=== PATIENT | female | born 1950 | race Caucasian/White ===

== ENCOUNTER 2019-05-18 18:52 | Emergency (ER) | payer MEDICARE, OTHER ==
--- NOTE | 2019-05-18 19:58 | UC ---
Back Pain HPI - HPI Summary HPI Summary: TWISTED BACK AWKWARDLY THIS AFTERNOON WHILE STANDING UP FROM THE FLOOR. HAS RIGHT LOW BACK PAIN AND RIGHT LEG PAIN. DENIES NUMBNESS. NO TINGLING. NO SADDLE ANESTHESIA. PAIN WORSE WHEN STANDING. BLOOD PRESSURE FOUND TO BE 217/98 ON ARRIVAL TO THE URGENT CARE. PATIENT DOES HAVE A HISTORY OF HYPERTENSION BUT STATES IT IS NORMALLY IN THE SYSTOLIC 140S. SHE DOES NOT CHECK HER BLOOD PRESSURE AT HOME. SHE DENIES ANY HEADACHE, NAUSEA , CHEST PAIN, SHORTNESS OF BREATH. - History of Current Complaint Chief Complaint: UCBackPain Stated Complaint: RT SIDE BACK AND LEG PAIN Time Seen by Provider: 05/18/19 19:26 Hx Obtained From: Patient Onset/Duration: Sudden Onset, Lasting Hours, Still Present Timing: Constant Severity Initially: Moderate Severity Currently: Moderate Pain Intensity: 5 Pain Scale Used: 0-10 Numeric Back Pain: Is Discrete @ - RIGHT LOW BACK Character: Sharp Aggravating Factor(s): Movement Alleviating Factor(s): Rest Associated Signs And Symptoms: Positive: Weakness. Negative: Swelling, Numbness , Tingling, Bladder Incontinence, Bowel Incontinence - Allergies/Home Medications Allergies/Adverse Reactions: Allergies Allergy/AdvReac Type Severity Reaction Status Date / Time Sulfa (Sulfonamide Allergy Unknown Verified 05/18/19 19:13 Antibiotics) Reaction Details Home Medications: Home Medications Efinaconazole [Jublia] 10 % TOPICAL DAILY 02/10/19 [History Confirmed 05/18/19] Metoprolol Succinate XL TAB* [Toprol XL TAB*] 50 mg PO DAILY 02/10/19 [History Confirmed 05/18/19] metFORMIN* [Glucophage 500 MG TAB *] 500 mg PO BID 02/10/19 [History Confirmed 05/18/19] Cholecalciferol (Vitamin D3) [Vitamin D3] 2,000 unit PO DAILY 02/15/19 [History Confirmed 05/18/19] Cyclobenzaprine TAB* [Flexeril TAB*] 10 mg PO BID PRN #30 tab 05/18/19 [Rx] Hydrochlorothiazide TAB* [Hydrodiuril TAB*] 1 tab PO DAILY 05/18/19 [History Confirmed 05/18/19] Simvastatin (NF) [Zocor (NF)] 1 tab PO DAILY 05/18/19 [History Confirmed ] PMH/Surg Hx/FS Hx/Imm Hx Endocrine History: Diabetes Cardiovascular History: Hypertension - Surgical History Surgical History: None - Family History Known Family History: Positive: Cardiac Disease - Social History Alcohol Use: Rare Substance Use Type: None Smoking Status (MU): Never Smoked Tobacco Review of Systems All Other Systems Reviewed And Are Negative: Yes Constitutional: Positive: Negative Skin: Positive: Negative Respiratory: Positive: Negative Cardiovascular: Positive: Negative Gastrointestinal: Positive: Negative Genitourinary: Positive: Negative Musculoskeletal: Positive: Arthralgia, Decreased ROM, Myalgia Physical Exam Triage Information Reviewed: Yes Appearance: Well-Appearing, No Pain Distress, Well-Nourished Vital Signs: Initial Vital Signs Temp 97.3 F 05/18/19 19:16 Pulse 82 05/18/19 19:16 Resp 20 05/18/19 19:16 BP 217/98 05/18/19 19:16 Pulse Ox 96 05/18/19 19:16 Laboratory Tests 05/18/19 20:01 POC Urine Color Yellow POC Urine Clarity Clear POC Urine pH 6.5 POC Ur Specif [place] >= 1.030 POC Urine Protein Negative POC Ur Glucose (UA) Negative POC Urine Ketones Negative POC Urine Blood Trace-intact A POC Urine Nitrite Negative POC Urine Bilirubin Negative POC Urine Urobilinogen 0.2 POC U Leukocyte Esteras 2+ A Vital Signs Reviewed: Yes Eyes: Positive: Conjunctiva Clear ENT: Positive: Hearing grossly normal Neck: Positive: Supple Respiratory Exam: Normal Cardiovascular Exam: Normal Musculoskeletal: Positive: No Edema, ROM Limited @ - BACK, Other: - NEG STRAIGHT LEG RAISE. 4/5 STRENGTH RIGHT LEG, 5/5 LEFT LEG Neurological: Positive: Alert Psychological: Positive: Age Appropriate Behavior Skin: Negative: Rashes Diagnostics - Radiology L-SPINE XRAYS Radiology Interpretation Completed By: ED Physician Summary of Radiographic Findings: DEGENERATIVE CHANGES BUT NO ACUTE PATHOLOGY Back Pain Course/Dx - Course Course Of Treatment: GIVEN THE INCIDENTAL FINDING OF SIGNIFICANTLY ELEVATED BLOOD PRESSURE, URINE WAS TESTED. NO PROTEIN FOUND BUT PATIENT DID HAVE LEUKS AND TRACE BLOOD. SHE HAS NO URINARY SYMPTOMS THIS MAY BE DUE TO LACK OF FLUID HYDRATION AND CONTAMINATION. WILL NOT TREAT WITH AN ANTIBIOTIC PRESENTLY. SPECIMEN SENT FOR CULTURE AND WE WILL CALL THE PATIENT IF NEEDED. IF PT HAS NO SYMPTOMS TREATMENT MAY NOT BE INDICATED. ADVISED TO STAY WELL-HYDRATED AND HAVE HER URINE RECHECKED IN A COUPLE OF WEEKS TO ENSURE THE BLOOD HAS CLEARED. PATIENT ADVISED TO GO TO THE ER FOR FURTHER EVALUATION OF HER SIGNIFICANTLY ELEVATED BLOOD PRESSURE. PT OFFERED TRANSPORT TO THE ER BY AMBULANCE BUT DECLINES. ADVISED THAT BY NOT TRAVELING IN A MONITORED SETTING SHE COULD BE RISKING WORSENING OF HER CONDITION THAT COULD POSE A THREAT TO HER LIFE, HEALTH AND MEDICAL SAFETY. SHE VERBALIZES UNDERSTANDING AND CONTINUES TO DECLINE AMBULANCE TRANSFER. BACK PAIN LIKELY DUE TO ACUTE MUSCLE STRAIN SUSTAINED FROM AWKWARD POSITIONING EARLIER TODAY. DUE TO ELEVATED BLOOD PRESSURE PATIENT ADVISED NOT TO TAKE NSAIDS FOR DISCOMFORT. SHE WILL USE TYLENOL AND FLEXERIL. HEAT, REST, SLOW RANGE OF MOTION/STRETCHING EXERCISES. TO THE ER WITHOUT FAIL IF SYMPTOMS WORSEN. - Differential Dx/Diagnosis Provider Diagnosis: Acute lumbar myofascial strain, Asymptomatic hypertensive urgency Discharge ED - Sign-Out/Discharge Documenting (check all that apply): Patient Departure All imaging exams completed and their final reports reviewed: No - Discharge Plan Condition: Stable Disposition: TRANS [facility] OF CARE FAC Prescriptions: Cyclobenzaprine TAB* [Flexeril TAB*] 10 mg PO BID PRN #30 tab PRN Reason: Pain Patient Education Materials: Low Back Strain (ED), Hypertensive Crisis (ED) Referrals: Rolando Mattson MD [Primary Care Provider] - 2 Days Additional Instructions: FOR YOUR ELEVATED BLOOD PRESSURE (217/98, 180/100): GO DIRECTLY TO THE [facility] [facility] FROM HERE FOR FURTHER EVALUATION. YOU HAVE DECLINED TRANSFER TO THE ER BY AMBULANCE. BE ADVISED THAT BY NOT TRAVELING IN A MONITORED SETTING YOU COULD BE RISKING WORSENING OF YOUR CONDITION THAT COULD POSE A THREAT TO YOUR LIFE, HEALTH AND MEDICAL SAFETY. FOR YOUR BACK PAIN: BACK PAIN LIKELY DUE TO ACUTE MUSCLE STRAIN. XRAYS SHOW DEGENERATIVE CHANGES BUT NOTHING ACUTE ON MY INITIAL INTERPRETATION. WE WILL CALL YOU TOMORROW IF THE RADIOLOGY READ DIFFERS. AVOID NSAIDS SUCH MELOXICAM, ALEVE AND IBUPROFEN DUE TO YOUR ELEVATED BLOOD PRESSURE. TAKE TYLENOL NEEDED FOR DISCOMFORT. USE THE MUSCLE RELAXER AT NIGHT BEFORE BED. BE SURE TO GO THROUGH SLOW RANGE OF MOTION AND STRETCHING EXERCISES DAILY YOU ARE ABLE TO PREVENT STIFFENING UP AND MAKING THE DISCOMFORT WORSE. GO TO THE ED WITHOUT FAIL IF YOU DEVELOP WORSENING NUMBNESS/TINGLING IN YOUR LEGS, NUMBNESS IN THE GENITAL REGION, LOSS OF BOWEL/BLADDER CONTROL, INTOLERABLE PAIN OR ANY OTHER CONCERNING SYMPTOMS. I RECOMMEND YOU RECHECK YOUR URINE TEST WITH YOUR PCP IN A COUPLE OF WEEKS TO ENSURE THE BLOOD HAS CLEARED. STAY WELL HYDRATED. - Billing Disposition and Condition Condition: STABLE Disposition: Trans Higher Lvl of Care Fac
[2019-05-18 20:32] VITALS: BP 180/102
[2019-05-18] MEDS ORDERED: Cyclobenzaprine TAB* 10 MG PO ONE (20:39)
--- NOTE | 2019-05-21 10:07 | UC ---
- Progress Note Progress Note: CALLED PATIENT TO SEE HOW SHE IS DOING. LEFT MESSAGE TO CALL BACK. URINE CULTURE RETURNED POSITIVE FOR E. COLI 25-50,000 CFU/ML. NOT NECESSARILY INDICATIVE OF UTI. IF PATIENT CONTINUES TO BE ASYMPTOMATIC WOULD NOT TREAT. PATIENT ALSO HAS SIGNIFICANT ATHEROSCLEROTIC CHANGE IN HER LOWER AORTA. THIS WAS DISCUSSED WITH THE PATIENT DURING HER VISIT HERE. WOULD ADVISE PATIENT TO FOLLOW THIS UP WITH HER PCP TO EVALUATE FOR ANY ARTERIAL INSUFFICIENCY MORE DISTALLY. Course/Dx - Diagnoses Provider Diagnoses: Acute lumbar myofascial strain, Asymptomatic hypertensive urgency Discharge ED - Sign-Out/Discharge Documenting (check all that apply): Patient Departure All imaging exams completed and their final reports reviewed: Yes - Discharge Plan Condition: Stable Disposition: TRANS HIGHER LVL OF CARE FAC Prescriptions: Cyclobenzaprine TAB* [Flexeril TAB*] 10 mg PO BID PRN #30 tab PRN Reason: Pain Patient Education Materials: Low Back Strain (ED), Hypertensive Crisis (ED) Referrals: Rolando Mattson MD [Primary Care Provider] - 2 Days Additional Instructions: FOR YOUR ELEVATED BLOOD PRESSURE (217/98, 180/100): GO DIRECTLY TO THE [facility] [place] ER FROM HERE FOR FURTHER EVALUATION. YOU HAVE DECLINED TRANSFER TO THE ER BY AMBULANCE. BE ADVISED THAT BY NOT TRAVELING IN A MONITORED SETTING YOU COULD BE RISKING WORSENING OF YOUR CONDITION THAT COULD POSE A THREAT TO YOUR LIFE, HEALTH AND MEDICAL SAFETY. FOR YOUR BACK PAIN: BACK PAIN LIKELY DUE TO ACUTE MUSCLE STRAIN. XRAYS SHOW DEGENERATIVE CHANGES BUT NOTHING ACUTE ON MY INITIAL INTERPRETATION. WE WILL CALL YOU TOMORROW IF THE RADIOLOGY READ DIFFERS. AVOID NSAIDS SUCH MELOXICAM, ALEVE AND IBUPROFEN DUE TO YOUR ELEVATED BLOOD PRESSURE. TAKE TYLENOL NEEDED FOR DISCOMFORT. USE THE MUSCLE RELAXER AT NIGHT BEFORE BED. BE SURE TO GO THROUGH SLOW RANGE OF MOTION AND STRETCHING EXERCISES DAILY YOU ARE ABLE TO PREVENT STIFFENING UP AND MAKING THE DISCOMFORT WORSE. GO TO THE ED WITHOUT FAIL IF YOU DEVELOP WORSENING NUMBNESS/TINGLING IN YOUR LEGS, NUMBNESS IN THE GENITAL REGION, LOSS OF BOWEL/BLADDER CONTROL, INTOLERABLE PAIN OR ANY OTHER CONCERNING SYMPTOMS. I RECOMMEND YOU RECHECK YOUR URINE TEST WITH YOUR PCP IN A COUPLE OF WEEKS TO ENSURE THE BLOOD HAS CLEARED. STAY WELL HYDRATED. - Billing Disposition and Condition Condition: STABLE Disposition: Trans Higher Lvl of Care Fac
--- NOTE | 2019-05-21 10:38 | UC ---
- Progress Note Progress Note: PATIENT CALLED BACK. SHE STATES HER BLOOD PRESSURE IS BACK TO AROUND HER BASELINE OF SYSTOLIC 140S. WHEN QUESTIONED ABOUT HER BACK PAIN SHE STATES IT IS NOT MUCH BETTER. SHE ALSO REPORTS THAT LAST NIGHT SHE DEVELOPED RIGHT CALF PAIN AND A FEELING OF "THICKNESS "IN HER RIGHT LOWER LEG. WHEN ASKED IF HER RIGHT LEG LOOKS BIGGER THAN THE OTHER SHE ADMITS THAT IT DOES. PATIENT ADVISED TO GO DIRECTLY TO THE [facility] ER IMMEDIATELY FOR FURTHER EVALUATION. SHE MAY BENEFIT FROM BOTH VENOUS AND ARTERIAL EVALUATION GIVEN THE CALCIFICATION SEEN IN HER LOWER AORTA. I ALSO INFORMED HER OF HER EQUIVOCAL UTI CULTURE RESULTS. SHE CONTINUES TO BE ASYMPTOMATIC FROM A URINARY PERSPECTIVE. WOULD NOT TREAT WITH ANTIBIOTICS AT THIS TIME. DR. LONA BAEZ AT [facility] ER INFORMED. Course/Dx - Diagnoses Provider Diagnoses: Acute lumbar myofascial strain, Asymptomatic hypertensive urgency Discharge ED - Sign-Out/Discharge Documenting (check all that apply): Post-Discharge Follow Up All imaging exams completed and their final reports reviewed: Yes - Discharge Plan Condition: Stable [facility] Prescriptions: Cyclobenzaprine TAB* [Flexeril TAB*] 10 mg PO BID PRN #30 tab PRN Reason: Pain Patient Education Materials: Low Back Strain (ED), Hypertensive Crisis (ED) Referrals: Rolando Mattson MD [Primary Care Provider] - 2 Days Additional Instructions: FOR YOUR ELEVATED BLOOD PRESSURE (217/98, 180/100): GO DIRECTLY TO THE [facility] ER FROM HERE FOR FURTHER EVALUATION. YOU HAVE DECLINED TRANSFER TO THE ER BY AMBULANCE. BE ADVISED THAT BY NOT TRAVELING IN A MONITORED SETTING YOU COULD BE RISKING WORSENING OF YOUR CONDITION THAT COULD POSE A THREAT TO YOUR LIFE, HEALTH AND MEDICAL SAFETY. FOR YOUR BACK PAIN: BACK PAIN LIKELY DUE TO ACUTE MUSCLE STRAIN. XRAYS SHOW DEGENERATIVE CHANGES BUT NOTHING ACUTE ON MY INITIAL INTERPRETATION. WE WILL CALL YOU TOMORROW IF THE RADIOLOGY READ DIFFERS. AVOID NSAIDS SUCH MELOXICAM, ALEVE AND IBUPROFEN DUE TO YOUR ELEVATED BLOOD PRESSURE. TAKE TYLENOL NEEDED FOR DISCOMFORT. USE THE MUSCLE RELAXER AT NIGHT BEFORE BED. BE SURE TO GO THROUGH SLOW RANGE OF MOTION AND STRETCHING EXERCISES DAILY YOU ARE ABLE TO PREVENT STIFFENING UP AND MAKING THE DISCOMFORT WORSE. GO TO THE ED WITHOUT FAIL IF YOU DEVELOP WORSENING NUMBNESS/TINGLING IN YOUR LEGS, NUMBNESS IN THE GENITAL REGION, LOSS OF BOWEL/BLADDER CONTROL, INTOLERABLE PAIN OR ANY OTHER CONCERNING SYMPTOMS. I RECOMMEND YOU RECHECK YOUR URINE TEST WITH YOUR PCP IN A COUPLE OF WEEKS TO ENSURE THE BLOOD HAS CLEARED. STAY WELL HYDRATED. - Billing Disposition and Condition Condition: STABLE Disposition: Trans Higher Lvl of Care Fac
== END 2019-05-18 20:54 | disposition short-term general hospital (02) ==
LOC: UCEAST 18:52
DX: S39.012A Strain of muscle, fascia and tendon of lower back, initial encounter (principal); X50.1XXA Overexertion from prolonged static or awkward postures, initial encounter; Y93.89 Activity, other specified; Y92.9 Unspecified place or not applicable; I16.0 Hypertensive urgency; E11.9 Type 2 diabetes mellitus without complications; Z79.84 Long term (current) use of oral hypoglycemic drugs; Z79.899 Other long term (current) drug therapy; Z88.2 Allergy status to sulfonamides
CPT/HCPCS: 72110; 81003; 87077; 87086; 87186; 99212; A9270-GY; G0463

== ENCOUNTER 2019-05-18 21:14 | Emergency (ER) | payer MEDICARE, OTHER ==
--- NOTE | 2019-05-18 21:47 | ED ---
Hypertension - HPI Summary HPI Summary: 68-year-old female with significant past medical history of type 2 diabetes and hypertension presents to the emergency department today with a chief complaint of elevated blood pressure. Upon arrival in the emergency department patient's blood pressure is 203/99 mmHg. Patient was recently seen at urgent care for back pain and leg pain which was diagnosed as mechanical back strain. Patient was sent here from urgent care due to her high blood pressure. Patient had urinalysis done in the urgent care which showed no evidence of proteinuria. Patient states she has taken her antihypertensive medications today. Patient denies other symptoms such as headache, changes in vision, chest pain, abdominal pain, blood in her urine. Patient denies recent recreational drug use. Patient denies family history of polycystic kidney disease or aneurysm. - History of Current Complaint Chief Complaint: EDHypertension Stated Complaint: HIGH BLOOD PRESSURE Time Seen by Provider: 05/18/19 21:33 Hx Obtained From: Patient Timing: Constant Associated Signs & Symptoms: Negative Current Medications: Beta Radha, Diuretic - Risk Factors Cardiac Risk Factors: Hypertension, Smoking, Diabetes - Allergies/Home Medications Allergies/Adverse Reactions: Allergies Allergy/AdvReac Type Severity Reaction Status Date / Time Sulfa (Sulfonamide Allergy Unknown Verified 05/18/19 21:18 Antibiotics) Reaction Details Home Medications: Home Medications Efinaconazole [Jublia] 10 % TOPICAL DAILY 02/10/19 [History Confirmed 05/18/19] Metoprolol Succinate XL TAB* [Toprol XL TAB*] 50 mg PO DAILY 02/10/19 [History Confirmed 05/18/19] metFORMIN* [Glucophage 500 MG TAB *] 500 mg PO BID 02/10/19 [History Confirmed 05/18/19] Cholecalciferol (Vitamin D3) [Vitamin D3] 2,000 unit PO DAILY 02/15/19 [History Confirmed 05/18/19] Cyclobenzaprine TAB* [Flexeril TAB*] 10 mg PO BID PRN #30 tab 05/18/19 [Rx Confirmed 05/18/19] Fluoride (Sodium) [Prevident 5000 Dry Mouth] 1.1 % PO BID 05/18/19 [History Confirmed 05/18/19] Simvastatin TAB(NF) [Zocor(NF)] 20 mg PO DAILY 05/18/19 [History Confirmed 05/17] Spironolactone/HCTZ 25-25 MG* [Aldactazide 25-25*] 1 tab PO DAILY 05/18/19 [ History Confirmed 05/18/19] PMH/Surg Hx/FS Hx/Imm Hx Endocrine/Hematology History: Reports: Hx Diabetes Cardiovascular History: Reports: Hx Hypertension - Cancer History Hx Chemotherapy: No Hx Radiation Therapy: No Infectious Disease History: No Infectious Disease History: Denies: Traveled Outside the [place] in Last 30 Days - Family History Known Family History: Positive: Cardiac Disease, Non-Contributory - Social History Alcohol Use: Rare Substance Use Type: Reports: None Smoking Status (MU): Never Smoked Tobacco Review of Systems Constitutional: Negative Eyes: Negative ENT: Negative Cardiovascular: Negative Respiratory: Negative Gastrointestinal: Negative Genitourinary: Negative Positive: Arthralgia. Negative: Myalgia, Decreased ROM, Edema Skin: Negative Neurological/Mental Status: Negative Psychological: Normal All Other Systems Reviewed And Are Negative: Yes Physical Exam - Summary Physical Exam Summary: Patient is in no acute distress. Patient has no tenderness to palpation of the midline. Patient has pain with palpation of the right paraspinal muscles of the lumbar spine. Back pain is reproducible and appears consistent with lumbar muscle strain. Patient visual yoder are intact. Triage Information Reviewed: Yes Vital Signs On Initial Exam: Initial Vitals Temp Pulse Resp BP Pulse Ox 96.6 F 87 16 199/102 96 05/18/19 21:17 05/18/19 21:17 05/18/19 21:17 05/18/19 21:17 05/18/19 21:17 Vital Signs Reviewed: Yes Appearance: Positive: Well-Appearing, No Pain Distress, Well-Nourished Skin: Positive: Warm, Skin Color Reflects Adequate Perfusion Eyes: Positive: EOMI, DUANE ENT: Positive: Hearing grossly normal Respiratory/Lung Sounds: Positive: Clear to Auscultation, Breath Sounds Present Cardiovascular: Positive: RRR, S1, S2 Abdomen Description: Positive: Nontender, Soft Musculoskeletal: Positive: Strength/ROM Intact Neurological: Positive: Sensory/Motor Intact, Alert, Oriented to Person Place, Time, Normal Gait, Facial Symmetry, Speech Normal Psychiatric: Positive: Normal, Affect/Mood Appropriate AVPU Assessment: Alert Procedures - Sedation Patient Received Moderate/Deep Sedation with Procedure: No Diagnostics - Vital Signs Vital Signs Temp Pulse Resp BP Pulse Ox 05/18/19 21:17 96.6 F 87 16 199/102 96 - Laboratory Result Diagrams: 05/18/19 21:47 05/18/19 21:47 Lab Statement: Any lab studies that have been ordered have been reviewed, and results considered in the medical decision making process. Hypertension Course/Dx - Course Course Of Treatment: Patient was evaluated in the emergency department today for hypertension. Upon arrival patient's blood pressure was 203/99 mmHg. Patient states she has taken her antihypertensive medication today. EKG was done promptly which showed no evidence of STEMI. Normal sinus rhythm at a rate of 82 bpm. Normal axis, OH, QT interval. No evidence of ischemia. Laboratory studies returned showing no leukocytosis with a white blood cell count of 8.3. There were no significant electrolyte abnormalities. Renal function was normal with BUN 18, creatinine 0.76. No evidence of hepatic dysfunction. There is no evidence of end organ damage or symptoms to suggest so. Patient was discharged to outpatient management with her PCP for control of her blood pressure the diagnosis of asymptomatic hypertensive urgency. - Diagnoses Differential Diagnosis/HQI PQRI: Hypertension, Hypertensive Crisis, Hypertensive Urgency, Renal Disease, Other - Aortic dissection Provider Diagnoses: Hypertensive urgency Discharge ED - Sign-Out/Discharge Documenting (check all that apply): Patient Departure - Discharge Plan Condition: Stable Disposition: HOME Patient Education Materials: Hypertension (ED) Referrals: Rolando Mattson MD [Primary Care Provider] - 1 Day Additional Instructions: Please call your primary care physician in the morning for further evaluation and management of your hypertension with possible medication change. Please take Tylenol for pain and avoid the use of NSAIDs such as ibuprofen as these can increase your blood pressure. Please also avoid alcohol. Please return to this emergency department immediately should you develop any new or worsening symptoms such as headache, changes in vision, neck pain, chest pain, shortness of breath. - Billing Disposition and Condition Condition: STABLE Disposition: Home - Attestation Statements Provider Attestation: I was available for consult. This patient was seen by the [facility]. The patient was not presented to, seen by, or examined by me. Dino Dos Santos MD
[2019-05-18 21:54] LABS: ABS Monocytes 0.4 10^3/ul (0-0.8); ABS Neutrophils 6.8 10^3/ul (1.5-7.7); Eosinophil % 0.4 %; Hematocrit 41 % (35-47); Hemoglobin 14.3 g/dL (12.0-16.0); Lymphocyte % 12.3 %; Mean Corpuscular HGB Conc 35 g/dL (31-36); Mean Corpuscular Hemoglobin 34 pg (27-31); Mean Corpuscular Volume 99 fL (80-97); Mean Platelet Volume 7.7 fL (7.4-10.4); Platelet Count 140 10^3/uL (150-450); Red Blood Count 4.19 10^6 /uL (3.70-4.87); Red Cell Distribution Width 15 % (10-15); White Blood Count 8.3 10^3/uL (3.5-10.8)
[2019-05-18 22:11] LABS: Albumin 4.3 g/dL (3.2-5.2); Albumin/Globulin Ratio 1.4 (1-3); BUN/Creatinine Ratio 23.7 (8-20); Calcium 9.8 mg/dL (8.6-10.3); EGFR African American 91.3 (>60); EGFR Non-African American 75.5 (>60); Potassium 4.3 mmol/L (3.5-5.0); Total Bilirubin 0.6 mg/dL (0.2-1.0); Total Protein 7.3 g/dL (6.4-8.9)
[2019-05-18] MEDS ORDERED: Acetaminophen TAB* 325 MG PO ONE (22:51)
[2019-05-18 23:04] VITALS: BP 228/111
== END 2019-05-18 23:00 | disposition home or self-care (01) ==
LOC: ED 21:14
DX: I16.0 Hypertensive urgency (principal); E11.9 Type 2 diabetes mellitus without complications; Z79.84 Long term (current) use of oral hypoglycemic drugs; Z79.899 Other long term (current) drug therapy; Z88.2 Allergy status to sulfonamides
CPT/HCPCS: 36415; 80053; 85025; 93005; 99283; A9270-GY

== ENCOUNTER 2019-05-21 11:33 | Emergency (ER) | payer MEDICARE, OTHER ==
--- NOTE | 2019-05-21 12:00 | ED ---
Back Pain - HPI Summary HPI Summary: 68 y/o female presented to [facility] for a dull ache in her back that began roughly 7 days ago. Pain began in the lower back and right leg that became shooting pains 2 days ago. 2 days ago she went to [facility] and received an indeterminate urine test, XRay. She had a BP of 200/100. [facility] recommended the ER, and when she came to [facility] she was given hydrochlorothiazide. She notes her BP elevated slightly since then but in the room it was slightly lower. Pt denies urinary sx but endorses numbness in her right calf. - History of Current Complaint Chief Complaint: EDExtremityLower Stated Complaint: BACK PAIN/ NUMBNESS AND PAIN IN LEG PER PT Time Seen by Provider: 05/21/19 11:36 Hx Obtained From: Patient Onset/Duration: Lasting Days, Still Present Onset/Duration: Started Days Ago, Atraumatic, Still Present Severity Currently: Moderate Pain Intensity: 5 Pain Scale Used: 0-10 Numeric Character: Dull Associated Signs And Symptoms: Positive: Numbness - right calf, Other - negative - urinary sx - Allergies/Home Medications Allergies/Adverse Reactions: Allergies Allergy/AdvReac Type Severity Reaction Status Date / Time Sulfa (Sulfonamide Allergy Unknown Verified 05/21/19 11:43 Antibiotics) Reaction Details Home Medications: Home Medications Efinaconazole [Jublia] 10 % TOPICAL DAILY 02/10/19 [History Confirmed 05/18/19] Metoprolol Succinate XL TAB* [Toprol XL TAB*] 50 mg PO DAILY 02/10/19 [History Confirmed 05/18/19] metFORMIN* [Glucophage 500 MG TAB *] 500 mg PO BID 02/10/19 [History Confirmed 05/18/19] Cholecalciferol (Vitamin D3) [Vitamin D3] 2,000 unit PO DAILY 02/15/19 [History Confirmed 05/18/19] Cyclobenzaprine TAB* [Flexeril TAB*] 10 mg PO BID PRN #30 tab 05/18/19 [Rx Confirmed 05/18/19] Fluoride (Sodium) [Prevident 5000 Dry Mouth] 1.1 % PO BID 05/18/19 [History Confirmed 05/18/19] Simvastatin TAB(NF) [Zocor(NF)] 20 mg PO DAILY 05/18/19 [History Confirmed 05/17] Spironolactone/HCTZ 25-25 MG* [Aldactazide 25-25*] 1 tab PO DAILY 05/18/19 [ History Confirmed 05/18/19] PMH/Surg Hx/FS Hx/Imm Hx Endocrine/Hematology History: Reports: Hx Diabetes Cardiovascular History: Reports: Hx Hypertension - Cancer History Hx Chemotherapy: No Hx Radiation Therapy: No Infectious Disease History: No Infectious Disease History: Denies: Traveled Outside the [place] in Last 30 Days - Family History Known Family History: Positive: Cardiac Disease - Social History Alcohol Use: Daily Alcohol Amount: 1-2 martini's a night Substance Use Type: Reports: None Smoking Status (MU): Never Smoked Tobacco Review of Systems Genitourinary: Negative Positive: Other - back pain Positive: Numbness - right calf All Other Systems Reviewed And Are Negative: Yes Physical Exam - Summary Physical Exam Summary: Constitutional: Well-developed, Well-nourished, Alert. (-) Distressed Skin: Warm, Dry HENT: Normocephalic; Atraumatic Eyes: Conjunctiva normal Neck: Musculoskeletal ROM normal neck. (-) JVD, (-) Stridor, (-) Nuchal rigidity Cardio: Rhythm regular, Intact distal pulses; Radial pulses are 2+ and symmetric. (-) Murmur; Right calf 39cm, left calf 39cm; BP in right calf 170, in left calf 165 Pulmonary/Chest wall: Effort normal. (-) Respiratory distress Abd: Non distended Musculoskeletal: (-) Edema; Tenderness in right SI joint; No midline C/T/L tenderness Lymph: (-) Cervical adenopathy Neuro: Alert, Oriented x3, strength 5/5 LE Psych: Mood and affect Normal Triage Information Reviewed: Yes Vital Signs On Initial Exam: Initial Vitals Temp Pulse Resp BP Pulse Ox 98.1 F 92 16 169/97 97 05/21/19 11:36 05/21/19 11:36 05/21/19 11:36 05/21/19 11:36 05/21/19 11:36 Vital Signs Reviewed: Yes Procedures - Sedation Patient Received Moderate/Deep Sedation with Procedure: No Diagnostics - Vital Signs Vital Signs Temp Pulse Resp BP Pulse Ox 05/21/19 11:36 98.1 F 92 16 169/97 97 - Laboratory Lab Statement: Any lab studies that have been ordered have been reviewed, and results considered in the medical decision making process. Back Pain Course/Dx - Course Course Of Treatment: 68 y/o F p/w lower R sided back/hip pain. No appreciable calf swellig, both 39 cm. APRIL: Right 0.97, Left: 0.94. Exam w TTP R SI joint, possible piriformis syndrome. No midline TL tenderness. No numbness/weakness, no trauma, no bowel or bladder incontinence. D dimer 239, age adjusted w our 578 <690. Imaging deferred - Diagnoses Provider Diagnoses: Piriformis syndrome Discharge ED - Sign-Out/Discharge Documenting (check all that apply): Patient Departure - Discharge Plan Condition: Stable Disposition: HOME Patient Education Materials: Piriformis Syndrome (ED) Referrals: Rolando Mattson MD [Primary Care Provider] - Additional Instructions: You were seen in the emergency department for llower back pain as well as right calf tenderness. You likely have a muscle strain complicated by nerve impingement. Your evaluation for blood clots was normal. Please follow up with your primary care doctor in next 2-3 days and return to emergency department for worsening pain, numbness or weakness of your extremities, or concerning symptoms. It was a pleasure taking care of you today. - Billing Disposition and Condition Condition: STABLE Disposition: Home - Attestation Statements Document Initiated by Risa: Yes Documenting Scribe: Gurvinder Griffith Provider For Whom Risa is Documenting (Include Credential): Kelvin Kirby MD Scribe Attestation: Gurvinder Kay, scribed for Kelvin Kirby MD on 05/21/19 at 1325. Scribe Documentation Reviewed: Yes Provider Attestation: The documentation as recorded by the Gurvinder marcos accurately reflects the service I personally performed and the decisions made by , Kelvin Kirby MD Status of Scribe Document: Viewed
--- OUTSIDE RECORDS SUMMARY | 2019-05-21 12:28 | XMS REPORT | Continuity of Care Document ---
:1950 External Reference #:[id number] Author Name Brenna Hannah M.D. (transmitted by agent of provider Paloma Mcadams) Address [address] [place] [address] Care Team Providers Name Role Phone Rolando Mattson - Family Medicine Care Team Information Acetylene Burner [phone] Adalberto Cortes DO - Gastroenterology Care Team Information Acetylene Burner [phone] Problems Active Problems Provider Date Benign essential hypertension Rolando Mattson M.D. Onset: 06/15/2006 Hyperlipidemia Rolando Mattson M.D. Onset: 06/15/2006 Type 2 diabetes mellitus Rolando Mattson M.D. Onset: 02/24/2011 Benign neoplasm of skin Rolando Mattson M.D. Onset: 03/02/2012 Adult health examination Rolando Mattson M.D. Onset: 04/05/2015 Essential hypertension Rolando Mattson M.D. Onset: 04/05/2015 Otalgia Rolando Mattson M.D. Onset: 05/09/2016 Impacted cerumen Rolando Mattson M.D. Onset: 05/09/2016 Other hyperlipidemia Rolando Mattson M.D. Onset: 04/29/2018 Shoulder joint pain Rolando Mattson M.D. Onset: 04/07/2019 Social History Type Date Description Comments Sex Unknown Tobacco Use Start: Unknown Nonsmoker Smoking Status Reviewed: 01/08/18 Nonsmoker ETOH Use Occasional Tobacco Use Start: Unknown End: Unknown Patient is a former smoker Allergies, Adverse Reactions, Alerts Active Allergies Reaction Severity Comments Date Sulfa photo sensativity 09/28/2014 Medications Active Medications SIG Qnty Indications Ordering Date Provider Hydrocodone 1 tab twice day as 14tabs M54.5 Brenna Hannah, 05/19/2019 Bitartrate/Acetaminoph needed M.D. en 5-325mg Tablets Simvastatin take 1 tablet by 30tabs Rolando Mattson, 04/12/2019 20mg Tablets mouth at bedtime M.D. for cholesterol Meloxicam Take 1 Tablet By 30tabs M25.561 Rolando Mattson, 02/19/2018 7.5mg Tablets Mouth With Food M.D. Once Daily For Pain And Inflamation Spironolactone/Hydroch Take 2 Tablet By 90tabs Rolando Mattson, 09/01/2017 lorothiazide Mouth Every M.D. 25-25mg Morning Tablets Metformin HCL take 1 tablet by 180tabs Rolando Mattson, 05/01/2016 500mg mouth twice a day M.D. Tablets Metoprolol Succinate Take 1 Tablet By 90tabs Rolando Mattson, 08/14/2008 ER Mouth Once Daily M.D. 50mg Tablets ER 24HR Vitamin D 1 by mouth every Unknown 5000Unit day Tablets Cyclobenzaprine HCL 1 by mouth twice a 60tabs Brenna Hannah, 10mg day as needed M.D. Tablets Immunizations CPT Code Status Date Vaccine Lot # [id number] Given 01/05/2018 Pneumococcal Conjugate Vacc-13 [id number] Given 02/12/2016 Tdap Tetanus, W Pertussis 30555 Given 11/28/2015 Pneumococcal Immunization 05621 Given 10/30/2015 Zostivax 84765 Given 09/28/2014 Tdap Tetanus, W Pertussis [id number] 21162 Given 08/04/2005 Hep A Adlt Immunization [id number] 54757 Given 09/09/2004 Td Immunization, For Use In Individuals 7 Years Or Older 81112 Given 09/09/2004 Hep A Adlt Immunization 42507 Given 05/06/1999 Hepatitis B Immunization, adult dosage, for intramuscular use 57316 Given 08/04/1997 Hepatitis B Immunization, High Risk Pediatric 64794 Given 07/10/1997 Hepatitis B Immunization, adult dosage, for intramuscular use Vital Signs Date Vital Result Comment 05/19/2019 10:21am BP Systolic 192 mmHg BP Diastolic 88 mmHg Heart Rate 84 /min Body Temperature 98.4 F Respiratory Rate 18 /min Height 64.25 inches 5'4.25" measured 04/29/18 Weight 203.00 lb BMI (Body Mass Index) 34.6 kg/m2 04/07/2019 9:55am BP Systolic 140 mmHg BP Diastolic 68 mmHg Heart Rate 72 /min Body Temperature 96.6 F Respiratory Rate 16 /min Height 64.25 inches 5'4.25" measured 04/29/18 Weight 202.00 lb BMI (Body Mass Index) 34.4 kg/m2 Results Test Acquired Date Facility Test Result H/L Range Note CBC Auto Diff 05/18/2019 [facility] [facility] White Blood 8.3 10^3/uL Normal 3.5-10.8 Count Red Blood Count 4.19 10^6/uL Normal 3.70-4.87 Hemoglobin 14.3 g/dL Normal 12.0-16.0 Hematocrit 41 % Normal 35-47 Mean Corpuscular Volume 99 fL High 80-97 Mean Corpuscular Hemoglobin 34 pg High 27-31 Mean Corpuscular HGB Conc 35 g/dL Normal 31-36 Red Cell Distribution Width 15 % Normal 10-15 Platelet Count 140 10^3/uL Low 150-450 Mean Platelet Volume 7.7 fL Normal 7.4-10.4 Abs Neutrophils 6.8 10^3/uL Normal 1.5-7.7 Abs Lymphocytes 1.0 10^3/uL Normal 1.0-4.8 Abs Monocytes 0.4 10^3/uL Normal 0-0.8 Abs Eosinophils 0.0 10^3/uL Normal 0-0.6 Abs Basophils 0.0 10^3/uL Normal 0-0.2 Abs Nucleated RBC 0.0 10^3/uL Granulocyte % 82.0 % Lymphocyte % 12.3 % Monocyte % 4.8 % Eosinophil % 0.4 % Basophil % 0.5 % Nucleated Red Blood Cells % 0.0 Comp Metabolic Panel 05/18/2019 [facility] [place] Sodium 136 mmol/L Normal 135-145 Potassium 4.3 mmol/L Normal 3.5-5.0 Chloride 97 mmol/L Low 101-111 Co2 Carbon Dioxide 28 mmol/L Normal 22-32 Anion Gap 11 mmol/L Normal 2-11 Glucose 140 mg/dL High 70-100 Blood Urea Nitrogen 18 mg/dL Normal 6-24 Creatinine 0.76 mg/dL Normal 0.51-0.95 BUN/Creatinine Ratio 23.7 High 8-20 Calcium 9.8 mg/dL Normal 8.6-10.3 Total Protein 7.3 g/dL Normal 6.4-8.9 Albumin 4.3 g/dL Normal 3.2-5.2 Globulin 3.0 g/dL Normal 2-4 Albumin/Globulin Ratio 1.4 Normal 1-3 Total Bilirubin 0.60 mg/dL Normal 0.2-1.0 Alkaline Phosphatase 65 U/L Normal 34-104 Alt 52 U/L Normal 7-52 Ast 36 U/L Normal 13-39 Egfr Non- 75.5 >60 Egfr 91.3 >60 1 Poc Urinalysis 05/18/2019 [facility] Poc Glucose, Urine Negative Negative Poc Bilirubin, Urine Negative Negative Poc Ketone, Urine Negative Negative Poc Specific Bryan, Urine >= 1.030 Normal 1.010-1.030 Poc Blood, Urine Trace-intact Abnormal Negative 2 Poc pH, Urine 6.5 Normal 5-9 Poc Protein, Urine Negative Negative Poc Urobilinogen, Urine 0.2 Negative Poc Nitrite, Urine Negative Negative Poc Leukocytes, Urine 2+ Abnormal Negative Poc Color, Urine Yellow Poc Clarity, Urine Clear Comprehensive Metabolic 04/07/2019 [facility](fma) Sodium 139 mEq/L 134-149 Prof Potassium 4.9 mEq/L 3.6-5.5 Chloride 98 mEq/L 94-112 Carbon Dioxide 29 mEq/L 21-32 Glucose 129 mg/dL High 70-105 3 BUN 14 mg/dL 6-26 Creatinine 0.7 mg/dL 0.6-1.4 BUN/Creat Ratio 20.0 CALC 8.0-36.0 Calcium 9.8 mg/dL 8.9-10.6 Total Protein 7.5 g/dL 6.4-8.3 Albumin 4.7 g/dL 3.8-5.5 Globulin 2.8 g/dL 2.0-4.8 A/G Ratio 1.7 CALC 0.6-2.3 Alk. Phosphatase 66 U/L 30-110 Alt (SGPT) 60 U/L High 7-35 Ast (Sgot) 45 U/L High 5-34 Total Bilirubin 0.8 mg/dL 0.2-1.3 GFR Non- >60 ml/min/1.73m^ >=60 GFR >60 ml/min/1.73m^ >=60 Lipid Profile 04/07/2019 [facility](a) Cholesterol 242 mg/dL High 120-200 Triglycerides 163 mg/dL 30-200 HDL Cholesterol 60 mg/dL 30-85 LDL (Calculated) 149 CALC High 0-129 VLDL Cholesterol 33 mg/dL 0-50 HDL Risk Factor 4.0 CALC 0.0-4.4 Laboratory test 04/07/2019 [facility] Hemoglobin A1c 5.8 % % High 4.1-5.7 finding (607)- - (a) Laboratory test 02/15/2019 [facility] Surgical SEE RESULT 4, 5 finding Pathology BELOW Comprehensive 11/19/2018 [facility](a) Sodium 139 mEq/L 134-149 Metabolic Prof Potassium 4.6 mEq/L 3.6-5.5 Chloride 104 mEq/L 94-112 Carbon Dioxide 27 mEq/L 21-32 Glucose 130 mg/dL High 70-105 6 BUN 26 mg/dL 6-26 Creatinine 0.9 mg/dL 0.6-1.4 BUN/Creat Ratio 28.9 CALC 8.0-36.0 Calcium 10.6 mg/dL High 8.6-10.2 7 Total Protein 7.9 g/dL 6.4-8.3 Albumin 5.0 g/dL 3.8-5.5 Globulin 2.9 g/dL 2.0-4.8 A/G Ratio 1.7 CALC 0.6-2.3 Alk. Phosphatase 63 U/L 30-110 Alt (SGPT) 33 U/L 7-35 Ast (Sgot) 29 U/L 5-34 Total Bilirubin 0.5 mg/dL 0.2-1.3 GFR Non- >60 ml/min/1.73m^ >=60 GFR >60 ml/min/1.73m^ >=60 Lipid Profile 11/19/2018 [facility](a) Cholesterol 207 mg/dL High 120-200 Triglycerides 204 mg/dL High 30-200 HDL Cholesterol 59 mg/dL 30-85 LDL (Calculated) 107 CALC 0-129 VLDL Cholesterol 41 mg/dL 0-50 HDL Risk Factor 3.5 CALC 0.0-4.4 Laboratory test 11/19/2018 [facility] Hemoglobin A1c (Fma) 5.7 % 4.1-5.7 finding (007)- - 1 Because ethnic data is not always readily available, this report includes an eGFR for both -Americans and non- Americans. The National Kidney Disease Education Program (NKDEP) does not endorse the use of the MDRD equation for patients that are not between the ages of 18 and 70, are , have extremes of body size, muscle mass, or nutritional status, or are non- or non-. According to the National Kidney Foundation, irrespective of diagnosis, the stage of the disease is based on the level of kidney function: Stage Description GFR(mL/min/1.73 m(2)) 1 Kidney damage with normal or decreased GFR 90 2 Kidney damage with mild decrease in GFR 60-89 3 Moderate decrease in GFR 30-59 4 Severe decrease in GFR 15-29 5 Kidney failure <15 (or dialysis) 2 Clinical Transformation Specialist: [id number] 3 consistent w/ previous results 4 [id number] 5 SEE RESULT BELOW Name: NATHAN MEHTA : [address]: Adalberto Cortes DO Acct: [id number] Unit: [id number] AGE: 68 Location: [facility] Re02/15/19 SEX: F Status: DEP REF SPEC: [id number] FLORECITA: 02/15/19-[address] [facility] [address]: Adalberto Cortes DO REQ: [id number] RECD: 02/15/192079 STATUS: RONNY PERLA DR: Rolando Mattson MD _ ORDERED: LEVEL 4/5 COMMENTS: [id number] FINAL DIAGNOSIS 1. Colon, ascending, biopsy: -- Sessile serrated adenoma. -- No high-grade dysplasia or malignancy. 2. Colon, ascending at 80 cm, biopsy: -- Tubular adenoma. -- No high grade dysplasia or malignancy. 3. Colon, transverse, biopsy: -- Tubular adenoma. -- No high grade dysplasia or malignancy. 4. Colon, descending, biopsy: -- Hyperplastic polyp. 5. Colon, sigmoid, biopsy: -- Hyperplastic polyp. CLINICAL HISTORY History of polyps CONTINUED ON NEXT PAGE DEPARTMENT OF PATHOLOGY, [address] [place] [address] Angel Bermudez M.D. Director [facility] # [id number] POST-OPERATIVE DIAGNOSIS Colonoscopy: to cecum; very difficult; biopsy cold snare ascending polyp (1) ; biopsy polyp at 80 cm; cold snare polyp transverse (1); descending (1) sigmoid (2) GROSS DESCRIPTION 1. The specimen is received in formalin labeled, Ascending Colon Polyp, and consists of a 0.6 x 0.6 by up to 0.3 cm aggregate of park-pink irregular to polypoid soft tissue fragments which is submitted entirely in one cassette. 2. The specimen is received in formalin labeled, Biopsy Ascending Colon Polyp at 80 cm, and consists of a 0.3 x 0.3 x 0.2 cm park-pink polypoid soft tissue fragment which is submitted entirely in cassette. 3. The specimen is received in formalin labeled, Transverse Colon Polyp, and consists of two park-pink irregular soft tissue fragments measuring 0.3 x 0.2 by up to 0.2 cm and 0.4 x 0.3 x 0.1 cm which are submitted entirely in one cassette. 4. The specimen is received in formalin labeled, Biopsy Descending Colon Polyp, and consists of a 0.4 x 0.3 by up to 0.3 cm park-pink polypoid soft tissue fragment which is submitted entirely in one cassette. 5. The specimen is received in formalin labeled, Biopsy Sigmoid Colon Polyps, and consists of two park-pink irregular to polypoid soft tissue fragments measuring 0.3 x 0.3 x 0.2 cm and 0.5 x 0.3 x 0.1 cm which are submitted entirely in one cassette. Signed by and Reported on: Antonia Murdock MD 02/16/19 1312 END OF REPORT DEPARTMENT OF PATHOLOGY, [address] [place] [address] Angel Bermudez M.D. Director [facility] # [id number] 6 NON-FASTING 7 RESULTS VERIFIED BY REPEAT ANALYSIS Procedures Date Code Description Status 02/15/2019 [id number] Colonoscopy Completed 11/12/2018 [id number] Mammogram Completed 09/23/2018 [id number] Diabetic Retinal Eye Exam Completed 10/30/2017 [id number] Mammogram Completed 11/12/2015 [id number] Mammogram Completed 10/23/2014 [id number] Mammogram Completed 10/20/2013 [id number] Mammogram Completed 09/08/2013 [id number] Bone Mineral Density Test Completed 04/22/2013 [id number] Colonoscopy Completed 03/31/2012 [id number] Mammogram Completed 09/28/2007 [id number] Colonoscopy Completed 04/08/2007 [id number] Mammogram Completed 03/04/2006 [id number] Mammogram Completed Medical Devices Description No Information Available Encounters Type Date Location Provider Dx Diagnosis Office Visit 05/19/2019 [facility] Office Brenna Hannah, I10 Essential ( primary) 10:20a M.D. hypertension E11.9 Type 2 diabetes mellitus without complications M54.5 Low back pain Office Visit 04/07/2019 10:00a [facility] Office Rolando Cesar E11.9 Type 2 diabetes Anthony Mattson mellitus without complications I10 Essential (primary) hypertension E78.49 Other hyperlipidemia M25.512 Pain in left shoulder Office Visit 11/19/2018 4:00p Main Office Rolando Mattson I10 Essential ( primary) Anthony hypertension E11.9 Type 2 diabetes mellitus without complications E78.49 Other hyperlipidemia Assessments Date Code Description Provider 05/19/2019 I10 Essential (primary) hypertension Brenna Hannah M.D. 05/19/2019 E11.9 Type 2 diabetes mellitus without Brenna Hannah M.D. complications 05/19/2019 M54.5 Low back pain Brenna Hannah M.D. 04/07/2019 E11.9 Type 2 diabetes mellitus without Rolando Mtatson M.D. complications 04/07/2019 I10 Essential (primary) hypertension Rolando Mattson M.D. 04/07/2019 E78.49 Other hyperlipidemia Rolando Mattson M.D. 04/07/2019 M25.512 Pain in left shoulder Rolando Mattson M.D. 11/19/2018 I10 Essential (primary) hypertension Rolando Mattson M.D. 11/19/2018 E11.9 Type 2 diabetes mellitus without Rolando Mattson M.D. complications 11/19/2018 E78.49 Other hyperlipidemia Rolando Mattson M.D. Plan of Treatment Future Appointment(s):05/26/2019 12:20 pm - Brenna Hannah M.D. at [facility] Efimib8408/25/2019 9:40 am - Rolando Mattson M.D. at [facility] [id number]/19/2019 - Brenna Hannah M.D.I10 Essential (primary) hypertensionComments:The patient will continue to monitor blood pressure and let me know the blood pressure results if there are readings persistently above 140/90. Goal blood pressure is less than 130/80. Recommend low salt/cardiac diet such as the Mediterranean diet and routine exercise at least 30 minutes a day. take 2 tabs of the spinrolactone/HCTZ starting today, monitor BP at home Avoid NSAIDS while BP is highFollow up:1 week eppijlnZ15.9 Type 2 diabetes mellitus without complicationsComments:Recommend yearly diabetic eye and foot exams, and check on blood pressure periodically. Goal blood sugar is less than 140 in the morning or A1c less than 7. Recommend monitoring portion size, decreased carbohydrate intake (breads, pasta, rice, candy, desserts, and sweetened beverages/alcohol) and routine daily exercise. hold statin for 2 vakceM19.5 Low back painNew Medication:Hydrocodone Bitartrate/Acetaminophen 5-325 mg - 1 tab twice day as neededComments:Take medications as directed. Can use heat or ice on area 15 minutes on/off. Use a tennis ball or foam roller to massage and loosen muscle spasm. Stretching exercises are recommended twice a day. Callif symptoms aren't improved/worsen in next 1-2 weeks. max acetaminophen 4000mg a day Reviewed adverse side effects of medication. Advised to call the office if experiencing symptoms. Patient verbalizedunderstanding.Follow up:1moAllComments: Medication Management Patient Understands medications she's taking? Yes No Are there Barriers to Adherence? Yes No Has the patient been asked about herbal supplements and therapies, and OTC meds? Yes No Functional Status Description No Information Available Mental Status Description No Information Available Referrals Description No Information Available
--- OUTSIDE RECORDS SUMMARY | 2019-05-21 12:28 | XMS REPORT | Continuity of Care Document ---
:1950 External Reference #:[id number] Author Name Brenna Hannah M.D. (transmitted by agent of provider Natalee Bojorquez) Address [address] [place] [address] Care Team Providers Name Role Phone Rolando Mattson - Family Medicine Care Team Information [employer] [phone] Adalberto Cortes DO - Gastroenterology Care Team Information [employer] [phone] Problems Active Problems Provider Date Benign essential [...] tab twice day as 14tabs M54.5 Brenna Camden, 05/19/2019 Bitartrate/Acetaminoph needed M.D. en 5-325mg Tablets [...] 1 by mouth twice a 60tabs Brenna Camden, 10mg day as needed M.D. Tablets Immunizations CPT Code Status Date Vaccine Lot # [id number] Given 01/05/2018 Pneumococcal Conjugate Vacc-13 [id number] 74216 Given 02/12/2016 Tdap Tetanus, W Pertussis 22209 Given 11/28/2015 Pneumococcal Immunization 84601 Given 10/30/2015 Zostivax 09378 Given 09/28/2014 Tdap Tetanus, W Pertussis [id number] 19665 Given 08/04/2005 Hep A Adlt Immunization [id number] 63961 Given 09/09/2004 Td Immunization, For Use In Individuals 7 Years Or Older 42038 Given 09/09/2004 Hep A Adlt Immunization 64655 Given 05/06/1999 Hepatitis B Immunization, adult dosage, for intramuscular use 83957 Given 08/04/1997 Hepatitis B Immunization, High Risk Pediatric 87591 Given 07/10/1997 Hepatitis B Immunization, adult dosage, [...] H/L Range Note CBC Auto Diff 05/18/2019 [facility] [place] White Blood 8.3 10^3/uL Normal 3.5-10.8 Count [...] Cells % 0.0 Comp Metabolic Panel 05/18/2019 [facility] [place] Sodium 136 mmol/L Normal 135-145 Potassium 4.3 [...] Poc Ketone, Urine Negative Negative Poc Specific [place], Urine >= 1.030 Normal 1.010-1.030 Poc Blood, [...] Factor 4.0 CALC 0.0-4.4 Laboratory test 04/07/2019 [facility] Hemoglobin A1c 5.8 % % High 4.1-5.7 finding (607)- - ([facility]) Laboratory test 02/15/2019 [facility] [place] SEE RESULT 4, 5 finding Pathology [...] Factor 3.5 CALC 0.0-4.4 Laboratory test 11/19/2018 [facility] Hemoglobin A1c (Fma) 5.7 % 4.1-5.7 finding (827)- - 1 Because ethnic data is not [...] 5 Kidney failure <15 (or dialysis) 2 Resource Agent: [id number] consistent w/ previous results 4 [id number] 5 SEE RESULT BELOW Name: NATHAN MEHTA : [address]: Adalberto Cortes DO Acct: [id number] Unit: [id number] AGE: 68 Location: [facility] Re02/15/19 SEX: F Status: DEP REF SPEC: [id number] FLORECITA: 02/15/19-[address] [facility] [address]: Adalberto Cortes DO REQ: [id number] RECD: 02/15/199959 STATUS: RONNY PERLA DR: Rolando Mattson MD _ ORDERED: LEVEL 4/5 COMMENTS: [id number] FINAL DIAGNOSIS 1. Colon, ascending, biopsy: -- [...] CONTINUED ON NEXT PAGE DEPARTMENT OF PATHOLOGY, [address] [place] [address] Angel Bermudez M.D. Director [facility] # [id number] POST-OPERATIVE DIAGNOSIS Colonoscopy: to cecum; very difficult; [...] 1312 END OF REPORT DEPARTMENT OF PATHOLOGY, [address] [place] [address] Angel Bermudez M.D. Director [facility] # [id number] 6 NON-FASTING 7 RESULTS VERIFIED BY REPEAT ANALYSIS Procedures Date Code Description Status 02/15/2019 [id number] Colonoscopy Completed 11/12/2018 [id number] Mammogram Completed 09/23/2018 [id number] Diabetic Retinal Eye Exam Completed 10/30/2017 [id number] Mammogram Completed 11/12/2015 [id number] Mammogram Completed 10/23/2014 [id number] Mammogram Completed 10/20/2013 [id number] Mammogram Completed 09/08/2013 [id number] Bone Mineral Density Test Completed 04/22/2013 [id number] Colonoscopy Completed 03/31/2012 [id number] Mammogram Completed 09/28/2007 [id number] Colonoscopy Completed 04/08/2007 [id number] Mammogram Completed 03/04/2006 [id number] Mammogram Completed Medical Devices Description No Information Available Encounters Type Date Location Provider Dx Diagnosis Office Visit 05/19/2019 [facility] Brenna Hannah, I10 Essential ( primary) 10:20a M.D. hypertension E11.9 Type 2 diabetes mellitus without complications M54.5 Low back pain Office Visit 04/07/2019 10:00a [facility] Rolando Cesar E11.9 Type 2 mary Mattson M.D. mellitus without complications I10 Essential (primary) hypertension E78.49 Other hyperlipidemia M25.512 Pain in left shoulder Office Visit 11/19/2018 4:00p Main Office Rolando Mattson, I10 Essential ( primary) Anthony hypertension E11.9 Type 2 diabetes mellitus without complications E78.49 Other hyperlipidemia Assessments Date Code Description Provider 05/19/2019 I10 Essential (primary) hypertension Brenna Hannah M.D. 05/19/2019 E11.9 Type 2 diabetes mellitus without Brenna Hannah M.D. complications 05/19/2019 M54.5 Low back pain Brenna Hannah M.D. 04/07/2019 E11.9 Type 2 diabetes mellitus without Rolando Mattson M.D. complications 04/07/2019 I10 Essential (primary) hypertension Rolando Mattson M.D. 04/07/2019 E78.49 Other hyperlipidemia Rolando Mattson M.D. 04/07/2019 M25.512 Pain in left shoulder Rolando Mattson M.D. 11/19/2018 I10 Essential (primary) hypertension Rolando Mattson M.D. 11/19/2018 E11.9 Type 2 diabetes mellitus without Rolando Mattson M.D. complications 11/19/2018 E78.49 Other hyperlipidemia Rolando Mattson M.D. Plan of Treatment Future Appointment(s):08/25/2019 9:40 am - Rolando Matt[facility] M[facility]/19/2019 - Brenna Hannah M.D.I10 Essential (primary) hypertensionComments:The [...] NSAIDS while BP is highFollow up:1 week ldxjayiR29.9 Type 2 diabetes mellitus without complicationsComments:Recommend yearly diabetic eye and foot exams, and check on blood pressure periodically. Goal blood sugar is less than 140 in the morning or A1c less than 7. Recommend monitoring portion size, decreased carbohydrate intake (breads, pasta, rice, candy, desserts, and sweetened beverages/alcohol) and routine daily exercise. hold statin for 2 wcxmkG31.5 Low back painNew Medication:Hydrocodone Bitartrate/Acetaminophen 5- 325 mg - 1 tab twice day as [...] the office if experiencing symptoms. Patient verbalizedunderstanding.Follow up:1moAllComments:Medication Management Patient Understands medications she's taking? Yes No Are there Barriers to Adherence? Yes No Has the patient been asked about herbal supplements and therapies, and OTC meds? Yes No Functional Status Description No Information Available Mental Status Description No Information Available Referrals Description No Information Available
[2019-05-21 13:27] VITALS: BP 150/82
== END 2019-05-21 13:25 | disposition home or self-care (01) ==
LOC: ED 11:33
DX: G57.00 Lesion of sciatic nerve, unspecified lower limb (principal); R20.0 Anesthesia of skin; E11.9 Type 2 diabetes mellitus without complications; I10 Essential (primary) hypertension; M54.9 Dorsalgia, unspecified; Z88.2 Allergy status to sulfonamides; Z79.84 Long term (current) use of oral hypoglycemic drugs; Z79.899 Other long term (current) drug therapy
CPT/HCPCS: 36415; 85379; 99282

== ENCOUNTER 2019-07-12 09:32 | Observation (INO) ==
[~2019-07-12 09:32] MED LIST: Lactated Ringers 1000 ml BAG 1,000 ML IV SCH
[2019-07-12] MEDS ORDERED: ceFAZolin 2 GM PREMIX in ORs 2 GM/50 ML BAG ONE (12:06)
[2019-07-12] MEDS ORDERED: Rocuronium 50 mg VIAL 10 mg/ml 5 ml VIAL (50 mg) ONE (13:14)
[2019-07-12] MEDS ORDERED: Ondansetron 4 mg VIAL 2 MG/ML 2 ml VIAL ONE (13:14)
[2019-07-12] MEDS ORDERED: Glycopyrrolate IV 0.2 MG/ML 1 ML VIAL ONE (13:14)
[2019-07-12] MEDS ORDERED: Succinylcholine 200 mg VIAL 20 mg/ml 10 ml VIAL (200 mg) ONE (13:14)
[2019-07-12] MEDS ORDERED: Midazolam 2 mg/2 ml VIAL 1 mg/ml 2 ml VIAL (2 mg) ONE (13:14)
[2019-07-12] MEDS ORDERED: fentaNYL 250 mcg/5 ml 50 MCG/ML 5 ml VIAL (250 MCG) ONE (13:14)
[2019-07-12] MEDS ORDERED: Dexamethasone IV 4 MG/ML VIAL 1 ml VIAL ONE (13:14)
[2019-07-12] MEDS ORDERED: Bacitracin INJECTION 50,000 UNITS ONE (13:21)
[2019-07-12] MEDS ORDERED: fentaNYL 100 mcg/2 ml 50 MCG/ML VIAL IV PRN (15:06)
[2019-07-12] MEDS ORDERED: Naloxone 0.4 mg VIAL 0.4 mg/ml 1 ml VIAL IV PRN (15:06)
[2019-07-12] MEDS ORDERED: HYDROcodone/ACETAMIN 5/325 mg TAB PO PRN (17:49)
[2019-07-12] MEDS ORDERED: Magnesium Hydroxide LIQ 30 ML UDC PO PRN (17:49)
[2019-07-12] MEDS ORDERED: Ondansetron 4 mg VIAL 2 MG/ML 2 ml VIAL IV PRN (17:49)
[2019-07-13] MEDS: HYDROcodone/ACETAMIN 5/325 mg TAB PO PRN ×3 (00:36→14:52)
[2019-07-13 00:37] LABS: Urine Appearance Clear; Urine Bilirubin Negative (Negative); Urine Blood Negative (Negative); Urine Color Yellow; Urine Glucose 3+(>=500 mg/dL) (Negative); Urine Ketones Negative (Negative); Urine Nitrite Negative (Negative); Urine Protein Negative (Negative); Urine Specific Gravity 1.014 (1.010-1.030); Urine Urobilinogen Negative (Negative)
[2019-07-13 06:54] LABS: Hematocrit 38 % (35-47); Hemoglobin 13.1 g/dL (12.0-16.0); Mean Corpuscular HGB Conc 35 g/dL (31-36); Mean Corpuscular Hemoglobin 33 pg (27-31); Mean Corpuscular Volume 95 fL (80-97); Red Blood Count 3.97 10^6 /uL (3.70-4.87); Red Cell Distribution Width 13 % (10-15); White Blood Count 15.6 10^3/uL (3.5-10.8)
[2019-07-13 07:31] LABS: Mean Platelet Volume 9.3 fL (7.4-10.4); Platelet Count 182 10^3/uL (150-450)
[2019-07-13 08:45] LABS: BUN/Creatinine Ratio 22.8 (8-20); Blood Urea Nitrogen 18 mg/dL (6-24); CO2 Carbon Dioxide 22 mmol/L (22-32); Calcium 9.7 mg/dL (8.6-10.3); Chloride 100 mmol/L (101-111); EGFR African American 87.3 (>60); EGFR Non-African American 72.2 (>60); Glucose 184 mg/dL (70-100); Sodium 138 mmol/L (135-145)
[2019-07-13 08:51] LABS: Anion Gap 16 mmol/L (2-11)
[2019-07-13] MEDS ORDERED: Spironolactone/HCTZ 25-25 mg PO SCH (09:00)
[2019-07-13 15:43] VITALS: BP 110/64
== END 2019-07-13 20:00 | disposition home or self-care (01) ==
LOC: OR 09:32 → SSU 09:32
PROVIDERS: ADMIT Neurological Surgery; ATTEND Internal Medicine

== ENCOUNTER 2020-01-23 17:13 | Inpatient (IN) ==
[2020-01-23 23:29] LABS: ABS Basophils 0.1 10^3/ul (0-0.2); ABS Eosinophils 0.2 10^3/ul (0-0.6); ABS Lymphocytes 1.9 10^3/ul (1.0-4.8); ABS Monocytes 0.6 10^3/ul (0-0.8); ABS Neutrophils 6.2 10^3/ul (1.5-7.7); Eosinophil % 1.9 %; Hematocrit 39 % (35-47); Hemoglobin 13.4 g/dL (12.0-16.0); Lymphocyte % 20.8 %; Mean Corpuscular HGB Conc 34 g/dL (31-36); Mean Corpuscular Hemoglobin 34 pg (27-31); Mean Corpuscular Volume 99 fL (80-97); Mean Platelet Volume 7.5 fL (7.4-10.4); Platelet Count 164 10^3/uL (150-450); Red Blood Count 3.93 10^6 /uL (3.70-4.87); Red Cell Distribution Width 14 % (10-15); White Blood Count 8.9 10^3/uL (3.5-10.8)
[2020-01-23 23:37] LABS: INR 1.06 (0.82-1.09)
[2020-01-23 23:46] LABS: Albumin/Globulin Ratio 1.3 (1-3); BUN/Creatinine Ratio 24.3 (8-20); Calcium 9.8 mg/dL (8.6-10.3); EGFR African American 100.1 (>60); EGFR Non-African American 82.7 (>60); Potassium 4.4 mmol/L (3.5-5.0); Total Bilirubin 0.4 mg/dL (0.2-1.0)
[2020-01-24] MEDS ORDERED: Enoxaparin 80 MG/0.8 ML SYR SUBCUT ONE (00:32)
[2020-01-24] MEDS ORDERED: Iodixanol (CONTRAST) 320 MG/ML 100 ML SDV IV ONE (00:33)
[2020-01-24] MEDS ORDERED: NS 0.9% 1000 ml BAG 1,000 ML IV ONE (02:19)
[2020-01-24 02:41] LABS: Troponin I 0.01 ng/mL (<0.03)
[2020-01-24] MEDS ORDERED: Dextrose 50% Syringe 50 ml 25 GM/50 ML SYRINGE IV PUSH PRN (03:14)
[2020-01-24] MEDS ORDERED: Ondansetron 4 mg VIAL 2 MG/ML 2 ml VIAL IV PRN (03:14)
[2020-01-24] MEDS ORDERED: NS 0.9% 1000 ml BAG 1,000 ML IV SCH (03:15)
[2020-01-24] MEDS: Heparin 5000 UNITS/ML 1 mL VIAL IV SCH ×2 (04:46→20:57)
[2020-01-24] MEDS: Heparin DRIP 25,000 UNITS BAG 25,000 UNITS/500 ML BAG IV SCH (05:08)
[2020-01-24 06:24] LABS: INR 1.18 (0.82-1.09)
[2020-01-24 06:29] LABS: CO2 Carbon Dioxide 30 mmol/L (22-32); Calcium 9.6 mg/dL (8.6-10.3); Chloride 97 mmol/L (101-111); Sodium 135 mmol/L (135-145)
[2020-01-24 06:30] LABS: Anion Gap 8 mmol/L (2-11)
[2020-01-24 06:31] LABS: ABS Eosinophils 0.1 10^3/ul (0-0.6); ABS Lymphocytes 1.1 10^3/ul (1.0-4.8); ABS Monocytes 0.3 10^3/ul (0-0.8); ABS Neutrophils 9.1 10^3/ul (1.5-7.7); Eosinophil % 1.3 %; Hematocrit 42 % (35-47); Lymphocyte % 10.4 %; Mean Corpuscular HGB Conc 34 g/dL (31-36); Mean Corpuscular Hemoglobin 34 pg (27-31); Mean Corpuscular Volume 101 fL (80-97); Mean Platelet Volume 7.9 fL (7.4-10.4); Platelet Count 150 10^3/uL (150-450); Red Cell Distribution Width 15 % (10-15); White Blood Count 10.6 10^3/uL (3.5-10.8)
[2020-01-24 06:35] LABS: Blood Urea Nitrogen 16 mg/dL (6-24); EGFR African American 81.1 (>60); Glucose 179 mg/dL (70-100)
[2020-01-24 08:06] LABS: Potassium Redraw 3.5 mmol/L (3.5-5.0)
[2020-01-24] MEDS: Multivitamins/Minerals TAB PO SCH (09:01)
[2020-01-24] MEDS ORDERED: Perflutren Lipid Microsphere 3 ML VIAL ONE (09:56)
[2020-01-24 11:46] LABS: Folate 6.07 ng/mL (>3.99)
[2020-01-24] MEDS: Cyanocobalamin INJ 1,000 MCG/ML VIAL 1 ML VIAL IM SCH (17:45)
[2020-01-25] MEDS: Heparin DRIP 25,000 UNITS BAG 25,000 UNITS/500 ML BAG IV SCH (00:16)
[2020-01-25 05:59] LABS: ABS Eosinophils 0.3 10^3/ul (0-0.6); ABS Lymphocytes 0.9 10^3/ul (1.0-4.8); ABS Monocytes 0.4 10^3/ul (0-0.8); ABS Neutrophils 3.7 10^3/ul (1.5-7.7); Eosinophil % 5.5 %; Hematocrit 37 % (35-47); Hemoglobin 12.7 g/dL (12.0-16.0); Lymphocyte % 17.5 %; Mean Corpuscular HGB Conc 34 g/dL (31-36); Mean Corpuscular Hemoglobin 34 pg (27-31); Mean Corpuscular Volume 100 fL (80-97); Mean Platelet Volume 7.5 fL (7.4-10.4); Platelet Count 136 10^3/uL (150-450); Red Blood Count 3.72 10^6 /uL (3.70-4.87); Red Cell Distribution Width 15 % (10-15); White Blood Count 5.3 10^3/uL (3.5-10.8)
[2020-01-25] MEDS: Multivitamins/Minerals TAB PO SCH (08:37)
[2020-01-25] MEDS: Cyanocobalamin INJ 1,000 MCG/ML VIAL 1 ML VIAL IM SCH (08:44)
[2020-01-25 14:39] VITALS: BP 121/65
[2020-01-26 14:09] LABS: DRVVT Screen Ratio 0.88 ratio (<1.20); LAC APTT 29 sec (25 - 37); LAC INR 1.2 (0.9-1.1); Prothrombin Time(LAC) 12.9 sec (9.4 - 12.5)
== END 2020-01-25 14:54 | disposition home or self-care (01) | DRG 299 ==
LOC: ED 17:13 → MEDTELE 01-24 04:01
PROVIDERS: ADMIT Pediatrics; ATTEND Internal Medicine